=== PATIENT | female | born 1965 | race Caucasian/White ===

== ENCOUNTER 2018-08-03 10:30 | Day surgery (SDC) | payer MEDICAID ==
[~2018-08-03] VITALS: Ht 154.9 cm; Wt 93.0 kg
[2018-08-03] MEDS ORDERED: LIDOCAINE 2% 100 MG/5 ML UJET TP ONE (12:52)
[2018-08-03] MEDS ORDERED: fentaNYL 0.05 MG/ML VIAL ONE (12:52)
== END 2018-08-03 13:36 | disposition home or self-care (01) ==
LOC: MMU 10:30 → MDS 10:30
PROVIDERS: ATTEND Internal Medicine Gastroenterology
DX: Z12.11 Encounter for screening for malignant neoplasm of colon (principal); K57.30 Diverticulosis of large intestine without perforation or abscess without bleeding; K64.8 Other hemorrhoids; I10 Essential (primary) hypertension; E66.01 Morbid (severe) obesity due to excess calories; Z68.41 Body mass index [BMI] 40.0-44.9, adult; Z79.899 Other long term (current) drug therapy; Z98.890 Other specified postprocedural states; Z98.51 Tubal ligation status
CPT/HCPCS: 45378; J3010